=== PATIENT | female | born 1955 | race Caucasian/White ===

== ENCOUNTER 2017-06-05 12:35 | Emergency (ER) | payer OTHER ==
[2017-06-05 12:44] VITALS: TEMP 98.1
--- NOTE | 2017-06-05 13:27 | CPEKG ---
Heart Rate: 62 RR Interval: 968 P-R Interval: 160 QRSD Interval: 90 QT Interval: 452 QTC Interval: 459 P Blandon: 73 QRS Blandon: 53 T Wave Blandon: 54 EKG Severity - NORMAL ECG - EKG Impression: SINUS RHYTHM Electronically Signed By: Justus Mcknight 06-Jun-2017 21:55:13
--- NOTE | 2017-06-05 13:31 | EDPHY ---
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 Imaging: I viewed and interpreted images myself ED Course/Re-evaluation: CHIEF COMPLAINT: Chest pain HISTORY OF PRESENT ILLNESS: The patient is a 62 y/o female arriving at the referral of her PCP complaining of intermittent chest pain for the last two weeks. Her symptoms stopped for a few days earlier this week and then returned. Her chest pain "feels sharp like a side ache" and is primarily located underneath her left breast. She developed associated left arm pain that also feels sharp in quality. Today, her chest pain spread to her left clavicle as well and she currently describes it as "dull." Her chest pain is aggravated by deep inspiration, but is unchanged by movement and exertion. She denies associated nausea, vomiting, dyspnea, near-syncope, lightheadedness, neck or jaw pain, fever, or other complaints. She has no known cardiac disease history or cardiac disease risk factors. No recent travel or prolonged sedentary periods. No pertinent medical history. REVIEW OF SYSTEMS: A 10 point review of systems was performed and is negative with the exception of the elements mentioned in the history of present illness. PHYSICAL EXAM: HR, BP, O2 Sat, RR. Temp noted General Appearance: Alert, well hydrated, appropriate, and non-toxic appearing. Head: Atraumatic without scalp tenderness or obvious injury Eyes: Pupils equal, round, reactive to light and accommodation, EOMI, no trauma , no injection. Nose: Atraumatic, no rhinorrhea, clear. Throat: Mucus membranes moist. Neck: Supple, nontender, no lymphadenopathy. Respiratory: No retractions, no distress, no wheezes, and no accessory muscle use. Lungs are clear to auscultation bilaterally. Cardiovascular: Regular rate and rhythm, no murmurs, rubs, or gallops. Good capillary refill all extremities. Gastrointestinal: Abdomen is soft, nontender, non-distended, no masses, no rebound, no guarding, no peritoneal signs. Musculoskeletal: Normal active ROM of all extremities, atraumatic. Neurological: Alert, appropriate, and interactive. The patient has non-focal cranial nerves, motor, sensory, and cerebellar exam. Skin: No rashes, good turgor, no nodules on palpation. Past medical history: denies Past surgical history: nasal and sinus surgery Family history: noncontributory Social history: Nonsmoker. DIAGNOSTICS/PROCEDURES/CRITICAL CARE TIME: Chest x-ray: negative The 12 lead EKG was interpreted by myself. Sinus mechanism. See hard copy and/ or "tracemaster" electronic copy for interpretation. DIFFERENTIAL DIAGNOSIS: The differential diagnosis for the patient's chest pain included but was not limited to myocardial ischemia, pulmonary embolus, chest wall pain, pleural inflammation, and pulmonary infectious causes. MEDICAL DECISION MAKING: This is a healthy 62 y/o female who presents with a 2-week history of intermittent sharp and pleuritic chest pain with associated left arm pain. Her exam is unremarkable. Plan for IV, labs, chest x-ray, and EKG. Due to the timeframe of her symptom onset, her troponin will be sensitive for cardiac a cause. Labs, EKG, and chest x-ray are all normal. Reassessed patient and discussed work up. She will be discharged home with standard care and follow up instructions for musculoskeletal chest pain. Return precautions discussed. She agrees with plan for discharge. - Data Points Laboratory Results: Laboratory Results 06/05/17 13:24 06/05/17 13:24 06/05/17 06/05/17 06/05/17 13:43 13:24 13:24 WBC 6.64 10^3/uL 10^3/uL (3.80-9.50) RBC 4.83 10^6/uL 10^6/uL (4.18-5.33) Hgb 14.2 g/dL g/dL (12.6-16.3) Hct 42.1 % % (38.0-47.0) MCV 87.2 fL fL (81.5-99.8) MCH 29.4 pg pg (27.9-34.1) MCHC 33.7 g/dL g/dL (32.4-36.7) RDW 11.8 % % (11.5-15.2) Plt Count 308 10^3/uL 10^3/uL (150-400) MPV 9.0 fL fL (8.7-11.7) Neut % (Auto) 57.9 % % (39.3-74.2) Lymph % (Auto) 32.1 % % (15.0-45.0) [place] % (Auto) 7.2 % % (4.5-13.0) Eos % (Auto) 1.4 % % (0.6-7.6) Baso % (Auto) 1.2 % % (0.3-1.7) Nucleat RBC Rel Count 0.0 % % (0.0-0.2) Absolute Neuts (auto) 3.85 10^3/uL 10^3/uL (1.70-6.50) Absolute Lymphs (auto) 2.13 10^3/uL 10^3/uL (1.00-3.00) Absolute Monos (auto) 0.48 10^3/uL 10^3/uL (0.30-0.80) Absolute Eos (auto) 0.09 10^3/uL 10^3/uL (0.03-0.40) Absolute Basos (auto) 0.08 10^3/uL 10^3/uL (0.02-0.10) Absolute Nucleated RBC 0.00 10^3/uL 10^3/uL (0-0.01) Immature Gran % 0.2 % % (0.0-1.1) Immature Gran # 0.01 10^3/uL 10^3/uL (0.00-0.10) D-Dimer 0.31 ug/mLFEU ug/mLFEU (0.00-0.50) Sodium 141 mEq/L mEq/L (134-144) Potassium 3.8 mEq/L mEq/L (3.5-5.2) Chloride 102 mEq/L mEq/L (97-110) Carbon Dioxide 28 mEq/l mEq/l (22-31) Anion Gap 11 mEq/L mEq/L (8-16) BUN 12 mg/dL mg/dL (7-23) Creatinine 1.0 mg/dL mg/dL (0.6-1.0) Estimated GFR 57 Glucose 88 mg/dL mg/dL (70-100) Calcium 9.7 mg/dL mg/dL (8.5-10.4) Troponin I < 0.012 ng/mL ng/mL (0.000-0.034) Departure - Departure Disposition: Home, Routine, Self-Care Clinical Impression: Musculoskeletal chest pain Condition: Good Instructions: Chest Wall Pain (ED) Additional Instructions: 1. Take Tylenol and ibuprofen as directed on the packaging as needed for pain over the next few days. 2. Please follow up with your primary care provider for unimproved symptoms over the weekend. 3. Return to the ED for any worsening of condition. Referrals: BALDEV VICK MD [Other] - As per Instructions Report Scribed for: Justus Mcknight Report Scribed by: Jumana Beckwith Date of Report: 06/05/17 Time of Report: 13:32
[2017-06-05 13:35] LABS: % IMMATURE GRANULYOCYTES 0.2 % (0.0-1.1); ABSOLUTE IMMATURE GRANULOCYTES 0.01 10^3/uL (0.00-0.10); ADD DIFF? NO; ADD MORPH? NO; ADD SCAN? NO; ATYPICAL LYMPHOCYTE FLAG 20 (0-99); FRAGMENT RBC FLAG 0 (0-99); HEMATOCRIT 42.1 % (38.0-47.0); HEMOGLOBIN 14.2 g/dL (12.6-16.3); LEFT SHIFT FLG 0 (0-99); LIPEMIA HEMOLYSIS FLAG 80 (0-99); MEAN CELL HEMOGLOBIN 29.4 pg (27.9-34.1); MEAN CELL HEMOGLOBIN CONCENTR. 33.7 g/dL (32.4-36.7); MEAN CELL VOLUME 87.2 fL (81.5-99.8); PLATELET CLUMPS FLAG 20 (0-99); PLATELET COUNT 308 10^3/uL (150-400); RED BLOOD CELL COUNT 4.83 10^6/uL (4.18-5.33); RED CELL DISTRIBUTION WIDTH 11.8 % (11.5-15.2)
[2017-06-05 13:51] LABS: ANION GAP 11 mEq/L (8-16); CALCIUM 9.7 mg/dL (8.5-10.4); CARBON DIOXIDE 28 mEq/l (22-31); CHLORIDE 102 mEq/L (97-110); GLOMERULAR FILTRATION RATE 57; GLUCOSE 88 mg/dL (70-100); POTASSIUM 3.8 mEq/L (3.5-5.2); SODIUM 141 mEq/L (134-144)
[2017-06-05 14:01] LABS: TROPONIN I < 0.012 ng/mL (0.000-0.034)
[2017-06-05 14:59] VITALS: BP 128/85; PULSE 75; RESP 13; O2SAT 96
== END 2017-06-05 14:59 | disposition home or self-care (01) ==
DX: R07.89 Other chest pain (principal)

== ENCOUNTER 2017-07-21 14:05 | Emergency (ER) | payer OTHER ==
[2017-07-21] MEDS ORDERED: ONDANSETRON 4 MG/2 ML VIAL IVP ONE (14:43)
[2017-07-21] MEDS ORDERED: fentaNYL 100 MCG/2 ML INJ IVP ONE (14:43)
[2017-07-21] MEDS ORDERED: NS 1,000 ML IV ONE (14:43)
[2017-07-21 14:54] LABS: PLATELET COUNT 295 10^3/uL (150-400)
[2017-07-21] MEDS ORDERED: IOPAMIDOL (ISOVUE-300) 100 ML BTL ONE (16:58)
--- NOTE | 2017-07-21 17:14 | EDPHY ---
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 She reports the onset of symptoms today. Symptoms are on the right side of the abdomen, mostly in the upper aspect. She has had associated nausea but no vomiting. She does state it began after eating a large meal last night. She denies other potential precipitating factors. She denies alleviating factors. She denies other associated signs or symptoms including no fevers, no diarrhea or constipation, no urinary symptoms. Review of systems: A 10 point review of systems was obtained and other than described above was negative (Enrico Gavin) - Physical Exam Exam: General Appearance: Alert, nontoxic. Eyes: Pupils equal and round no pallor or injection. ENT, Mouth: Mucous membranes moist. Respiratory: There are no retractions, lungs are clear to auscultation. Cardiovascular: Regular rate and rhythm. Gastrointestinal: Bowel sounds normal. There is mild guarding. Patient is tender on the right side rib min, she does wince when I palpate McBurney's point. Neurological: Alert and oriented x4. Strength and sensation intact and symmetrical. Skin: Warm and dry, no rashes. Musculoskeletal: Neck is supple non tender. Extremities are symmetrical, full range of motion. Psychiatric: Patient is oriented X 3, there is no agitation. (Enrico Gavin) Constitutional: Initial Vital Signs Temperature (C) 36.5 C 07/21/17 14:26 Heart Rate 70 07/21/17 14:26 Respiratory Rate 15 07/21/17 14:26 Blood Pressure 136/98 H 07/21/17 14:26 O2 Sat (%) 95 07/21/17 14:26 O2 Delivery Mode Room Air O2 (L/minute) 2 Allergies/Adverse Reactions: tetracycline Allergy (Unknown, Verified 06/05/17 12:40) "bad reaction" adhesive tape Allergy (Verified 07/21/17 14:25) Latex, Natural Rubber Allergy (Verified 07/21/17 14:25) Home Medications: Medication Instructions Recorded Pantoprazole Sodium [Protonix 40mg 40 mg PO BID #14 tab 07/21/17 (*)] Medical Decision Making <Enrico Gavin - Last Filed: 07/21/17 17:26> <Pia Mckinnon - Last Filed: 07/21/17 18:23> - Diagnostics Imaging Results: Imaging Impressions Abdomen Ultrasound 07/21/17 15:39 Impression: 1. Minimal gallbladder sludge. 2. No cholelithiasis or biliary ductal dilation. Findings and recommendations discussed with Emergency Department physician, ESTER Snell at 16:32 hour, 07/21/2017. Final report concurs with initial preliminary interpretation. Abdomen CT 07/21/17 16:44 Impression: 1. Moderate thickening of the gastric antrum suggestive of gastritis. 2. Enlarged prominent left adnexal veins with prominent left ovarian vein. Consider underlying pelvic congestion syndrome. 3. No CT evidence of appendicitis, abscess or bowel obstruction. These findings were discussed by telephone with Dr. Chaka Montague at 17:35 hour , 07/21/2017. Care Turn Over: Enrico Gavin signed over patient to me at end of shift at 5:30 p.m. Reassessed patient who reports that she has a history of peptic ulcer disease diagnosed by EGD approximately 10 years ago that she completed triple pack for. She also has a history of gallbladder sludge. Last night she ate a large rich meal and woke up in the middle night with a burning epigastric pain accompanied by some nausea. She is not on any PPI or H2 blockers. Reassessed patient and epigastric area has mild tenderness. No right lower quadrant tenderness. No peritoneal signs. Reviewed ultrasound that shows gallbladder sludge but no cholecystitis/cholelithiasis/common bile duct dilatation. Patient given GI cocktail and p.o. Protonix with adequate relief of epigastric discomfort. Patient informs me that she has a local gastroenterology appointment scheduled for next Thursday. I offered Carafate to be taken as well with Protonix but patient is very reluctant to take any medications. CT abdomen and pelvis scan did not show any signs of obstruction/pancreatitis/ appendicitis/colitis/diverticulitis. Vital signs stable upon discharge. This patient was seen under the supervision of my secondary supervising physician. I evaluated care for this patient independently. Discussed this patient with Dr. Velazquez who did not see the patient. (Pia Mckinnon) - Data Points Laboratory Results: Laboratory Results 07/21/17 14:35 07/21/17 14:35 07/21/17 07/21/17 07/21/17 14:35 14:35 14:35 WBC RBC Hgb Hct MCV MCH MCHC RDW Plt Count MPV Neut % (Auto) Lymph % (Auto) Dent % (Auto) Eos % (Auto) Baso % (Auto) Nucleat RBC Rel Count Absolute Neuts (auto) Absolute Lymphs (auto) Absolute Monos (auto) Absolute Eos (auto) Absolute Basos (auto) Absolute Nucleated RBC Immature Gran % Immature Gran # Sodium 140 mEq/L mEq/L (134-144) Potassium 3.9 mEq/L mEq/L (3.5-5.2) Chloride 101 mEq/L mEq/L (97-110) Carbon Dioxide 23 mEq/l mEq/l (22-31) Anion Gap 16 mEq/L mEq/L (8-16) BUN 13 mg/dL mg/dL (7-23) Creatinine 0.9 mg/dL mg/dL (0.6-1.0) Estimated GFR > 60 Glucose 101 mg/dL H mg/dL (70-100) Calcium 9.6 mg/dL mg/dL (8.5-10.4) Total Bilirubin 1.4 mg/dL mg/dL (0.1-1.4) Conjugated Bilirubin 0.2 mg/dL mg/dL (0.0-0.5) Unconjugated Bilirubin 1.2 mg/dL H mg/dL (0.0-1.1) AST 31 IU/L IU/L (14-46) ALT 35 IU/L IU/L (9-52) Alkaline Phosphatase 94 IU/L IU/L (38-126) Total Protein 8.0 g/dL g/dL (6.3-8.2) Albumin 4.6 g/dL g/dL (3.5-5.0) Lipase 96 IU/L IU/L (23-300) Beta HCG, Qual NEGATIVE Urine Color YELLOW Urine Appearance CLEAR Urine pH 6.0 (5.0-7.5) Ur Specific Edwards 1.017 (1.002-1.030) Urine Protein NEGATIVE (NEGATIVE) Urine Ketones 1+ H (NEGATIVE) Urine Blood NEGATIVE (NEGATIVE) Urine Nitrate NEGATIVE (NEGATIVE) Urine Bilirubin NEGATIVE (NEGATIVE) Urine Urobilinogen NEGATIVE EU EU (0.2-1.0) Ur Leukocyte Esterase TRACE H (NEGATIVE) Urine RBC 1-3 /hpf /hpf (0-3) Urine WBC 1-3 /hpf /hpf (0-3) Ur Epithelial Cells TRACE /lpf /lpf (NONE-1+) Urine Mucus TRACE /lpf /lpf (NONE-1+) Urine Glucose NEGATIVE (NEGATIVE) 07/21/17 14:35 WBC 8.03 10^3/uL 10^3/uL (3.80-9.50) RBC 4.95 10^6/uL 10^6/uL (4.18-5.33) Hgb 15.2 g/dL g/dL (12.6-16.3) Hct 43.1 % % (38.0-47.0) MCV 87.1 fL fL (81.5-99.8) MCH 30.7 pg pg (27.9-34.1) MCHC 35.3 g/dL g/dL (32.4-36.7) RDW 11.9 % % (11.5-15.2) Plt Count 295 10^3/uL 10^3/uL (150-400) MPV 8.8 fL fL (8.7-11.7) Neut % (Auto) 82.0 % H % (39.3-74.2) Lymph % (Auto) 12.0 % L % (15.0-45.0) Dent % (Auto) 4.6 % % (4.5-13.0) Eos % (Auto) 0.2 % L % (0.6-7.6) Baso % (Auto) 1.0 % % (0.3-1.7) Nucleat RBC Rel Count 0.0 % % (0.0-0.2) Absolute Neuts (auto) 6.58 10^3/uL H 10^3/uL (1.70-6.50) Absolute Lymphs (auto) 0.96 10^3/uL L 10^3/uL (1.00-3.00) Absolute Monos (auto) 0.37 10^3/uL 10^3/uL (0.30-0.80) Absolute Eos (auto) 0.02 10^3/uL L 10^3/uL (0.03-0.40) Absolute Basos (auto) 0.08 10^3/uL 10^3/uL (0.02-0.10) Absolute Nucleated RBC 0.00 10^3/uL 10^3/uL (0-0.01) Immature Gran % 0.2 % % (0.0-1.1) Immature Gran # 0.02 10^3/uL 10^3/uL (0.00-0.10) Sodium Potassium Chloride Carbon Dioxide Anion Gap BUN Creatinine Estimated GFR Glucose Calcium Total Bilirubin Conjugated Bilirubin Unconjugated Bilirubin AST ALT Alkaline Phosphatase Total Protein Albumin Lipase Beta HCG, Qual Urine Color Urine Appearance Urine pH Ur Specific Edwards Urine Protein Urine Ketones Urine Blood Urine Nitrate Urine Bilirubin Urine Urobilinogen Ur Leukocyte Esterase Urine RBC Urine WBC Ur Epithelial Cells Urine Mucus Urine Glucose Medications Given: Discontinued Medications Fentanyl (Sublimaze) 100 mcg IVP EDNOW ONE Stop: 07/21/17 14:44 Last Admin: 07/21/17 14:57 Dose: 100 mcg Sodium Chloride (Ns) 1,000 mls @ 0 mls/hr IV EDNOW ONE; Wide Open PRN Reason: Protocol Stop: 07/21/17 14:44 Last Admin: 07/21/17 14:56 Dose: 1,000 mls Ondansetron HCl (Zofran) 4 mg IVP EDNOW ONE Stop: 07/21/17 14:44 Last Admin: 07/21/17 14:57 Dose: 4 mg Departure <Enrico Gavin - Last Filed: 07/21/17 17:26> <Pia Mckinnon - Last Filed: 07/21/17 18:23> - Departure Disposition: Home, Routine, Self-Care Clinical Impression: Sludge in gallbladder Abdominal pain Qualifiers: Abdominal location: unspecified location Qualified Code(s): R10.9 - Unspecified abdominal pain Gastritis Qualifiers: Gastritis type: unspecified gastritis Chronicity: acute Gastritis bleeding: presence of bleeding unspecified Qualified Code(s): K29.00 - Acute gastritis without bleeding Condition: Good Instructions: Acute Abdominal Pain (ED), Gastritis (ED), Low Fat Diet (ED) Additional Instructions: Eat a low-fat diet with 6-8 small meals per day. Take Protonix twice daily. Please keep follow-up appointment with Gastroenterology next Thursday. You may benefit from elective outpatient laparoscopic cholecystectomy as well as repeat EGD. If symptoms worsen or new symptoms develop return to the emergency room for recheck. Referrals: BALDEV VICK [Other] - As per Instructions Sarkis Dailey MD [Medical Doctor] - 07/28/17 Prescriptions: Pantoprazole Sodium [Protonix 40mg (*)] 40 mg PO BID #14 tab
[2017-07-21 17:50] VITALS: TEMP 98.6
[2017-07-21] MEDS ORDERED: HYOSCYAMINE SULFATE 0.125 MG TAB PO ONE (18:15)
[2017-07-21] MEDS ORDERED: PANTOPRAZOLE SODIUM 40 MG TAB PO ONE (18:15)
[2017-07-21] MEDS ORDERED: MAG HYDROX/AL HYDROX/SIMETH 30 ML UDCUP PO ONE (18:15)
[2017-07-21] MEDS ORDERED: LIDOCAINE 2% VISCOUS 15 ML UDCUP PO ONE (18:15)
[2017-07-21 18:30] VITALS: BP 128/69; PULSE 69; RESP 18; O2SAT 95
== END 2017-07-21 18:29 | disposition home or self-care (01) ==
DX: K29.00 Acute gastritis without bleeding (principal); K83.9 Disease of biliary tract, unspecified; E86.9 Volume depletion, unspecified; Z91.040 Latex allergy status
CPT/HCPCS: 96374; J2405; J3010; Q9967

== ENCOUNTER → 2017-08-24 | Outpatient (CLI) | payer OTHER | LOC: FIMAGING 07:55 | PROVIDERS: ATTEND Physician Assistant Medical | DX: R10.11 Right upper quadrant pain (principal) | CPT/HCPCS: 78227; A9537 ==

== ENCOUNTER → 2018-05-03 | Outpatient (CLI) | payer OTHER | LOC: BMCIMAGING 09:43 | DX: Z13.820 Encounter for screening for osteoporosis (principal); M81.0 Age-related osteoporosis without current pathological fracture ==